=== PATIENT | female | born 1935 | race Caucasian/White ===

== ENCOUNTER → 2016-09-25 | Outpatient (CLI) | payer MEDICARE, BC ==
[~2016-09-25] VITALS: Ht 160 cm; Wt 56.7 kg
[~2016-09-25] MED LIST: /MOXI40TA; ACET65TA; ALLO100T; ALLO100T PO; ASCO25TA PO; ATOR1TAB21 PO; BISA10SU2; CAPT50TA4; CARV12.5 PO; CIPR250T3; CIPR500T19; COLA100C2; CORE12.5; CORE3.12 PO; CORE6.25; COREG; DARV100T; DIGO0.126; FERR325T; FLAG500T; FLEXERIL; FOLI1TAB; FOLI400T; FURO20TA2 PO; Ferrous Gluconate PO; K-TA10TA2 PO; LANO0.1211; LASI20TA; LASI20TA PO; LIDO5DIS; LISI-542 PO; MAGO400T PO; MILKSUS; NITR0.4S PO; NS 1,000 ML IV SCH; PERC5TAB8; PRIN10TA; PRIN20TA3; PROPOFOL 200 MG/20 ML VIAL As Ordered ONE; SLOWTAB; SPIRPOW; TAMO20TA4 PO; XANA0.25; XANA0.5T PO; ZOCO20TA; [UNRECOGNIZED DRUG - OTHER]
--- NOTE | 2016-09-25 10:29 | ROOR ---
Patient Name: Kaley Roque Procedure Date: 09/25/2016 10:06 AM Date of : 1935 Age: 80 Room: [facility] Gender: Female Note Status: Finalized Procedure: Colonoscopy Indications: Change in bowel habits Providers: Ravindra Fuller Jr, MD Referring MD: Adelia Pollard DO Requesting Provider: Medicines: Propofol per Anesthesia Complications: No immediate complications. Procedure: Pre-Anesthesia Assessment: - Prior to the procedure, a History and Physical was performed, and patient medications and allergies were reviewed. The patient is competent. The risks and benefits of the procedure and the sedation options and risks were discussed with the patient. All questions were answered and informed consent was obtained. Patient identification and proposed procedure were verified by the physician and the nurse in the pre-procedure area and in the procedure room. Mental Status Examination: alert and oriented. Airway Examination: normal oropharyngeal airway and neck mobility. Respiratory Examination: clear to auscultation. CV Examination: normal. ASA Grade Assessment: II - A patient with mild systemic disease. After reviewing the risks and benefits, the patient was deemed in satisfactory condition to undergo the procedure. The anesthesia plan was to use moderate sedation / analgesia (conscious sedation). Immediately prior to administration of medications, the patient was re-assessed for adequacy to receive sedatives. The heart rate, respiratory rate, oxygen saturations, blood pressure, adequacy of pulmonary ventilation, and response to care were monitored throughout the procedure. The physical status of the patient was re-assessed after the procedure. The Colonoscope was introduced through the anus and advanced to the cecum, identified by appendiceal orifice and ileocecal valve. The colonoscopy was performed without difficulty. The patient tolerated the procedure well. The quality of the bowel preparation was adequate and good. Findings: The perianal exam findings include non-thrombosed external hemorrhoids, non-thrombosed internal hemorrhoids and internal hemorrhoids that prolapse with straining, but require manual replacement into the anal canal (Grade III). Multiple small and large-mouthed diverticula were found in the sigmoid colon. The recto-sigmoid colon, descending colon, transverse colon, ascending colon, cecum, appendiceal orifice and ileocecal valve appeared normal. A diminutive polyp was found in the rectum. The polyp was removed with a jumbo cold forceps. Resection and retrieval were complete. Impression: - Non-thrombosed external hemorrhoids, non-thrombosed internal hemorrhoids and internal hemorrhoids that prolapse with straining, but require manual replacement into the anal canal (Grade III) found on perianal exam. - Diverticulosis in the sigmoid colon. - The recto-sigmoid colon, descending colon, transverse colon, ascending colon, cecum, appendiceal orifice and ileocecal valve are normal. - One diminutive polyp in the rectum, removed with a jumbo cold forceps. Resected and retrieved. Recommendation: - Discharge patient to home (ambulatory). - Repeat colonoscopy in 10 years for screening purposes. Ravindra Fuller MD Ravindra Fuller Jr, MD 09/25/2016 10:29:08 AM This report has been signed electronically. Number of Addenda: 0 Note Initiated On: 09/25/2016 10:06 AM Estimated Blood Loss: Estimated blood loss: none.
[2016-09-25 11:00] VITALS: BP 144/65
== END ==
LOC: M OPP 09:38
PROVIDERS: ATTEND Surgery
DX: R19.4 Change in bowel habit (principal); K62.1 Rectal polyp; K64.2 Third degree hemorrhoids; K64.4 Residual hemorrhoidal skin tags; K57.30 Diverticulosis of large intestine without perforation or abscess without bleeding; R04.0 Epistaxis; Q30.8 Other congenital malformations of nose; I78.0 Hereditary hemorrhagic telangiectasia; E78.00 Pure hypercholesterolemia, unspecified; I10 Essential (primary) hypertension; D64.9 Anemia, unspecified; E11.9 Type 2 diabetes mellitus without complications; I50.9 Heart failure, unspecified; I49.9 Cardiac arrhythmia, unspecified; G47.00 Insomnia, unspecified; H93.19 Tinnitus, unspecified ear; R06.02 Shortness of breath; Z95.0 Presence of cardiac pacemaker; Z79.899 Other long term (current) drug therapy; Z91.040 Latex allergy status

== ENCOUNTER 2016-12-13 12:52 | Emergency (ER) | payer MEDICARE, BC ==
[~2016-12-13] VITALS: Ht 160 cm; Wt 58.2 kg
[~2016-12-13 12:52] MED LIST changes: -NS 1,000 ML IV SCH; -PROPOFOL 200 MG/20 ML VIAL As Ordered ONE
[2016-12-13] MEDS ORDERED: NITR4TASL SL (13:18)
[2016-12-13] MEDS ORDERED: ASCO25TA PO (13:18)
--- NOTE | 2016-12-13 15:24 | REP ---
AP PELVIS WITH LEFT HIP: 12/13/2016 COMPARISON: CT abdomen pelvis 07/12/2009. CLINICAL HISTORY: Atraumatic pain. AP PELVIS: There are degenerative disc and facet changes lower lumbar spine. SI joints with minor degenerative change. Bones demineralized. SI joints symmetric. Iliac wings intact. There are minor degenerative changes of the hips at the acetabular margins. No significant joint space narrowing. The acetabuli, pubic rami, symphysis pubis without fracture, destructive lesion. Bilateral hips on the AP pelvis show no fracture or focal lesion. LEFT HIP: AP and frog-leg views show no joint space narrowing. There is no rim osteophyte in the femoral head. There are some soft tissue calcifications adjacent to the posterior superior aspect of the greater trochanter femoral head neck and trochanters show no fracture or destructive lesion. Proximal femoral shaft intact. IMPRESSION: 1. Some degenerative changes lower lumbar spine and facets, SI joints and minimally of the hips. No visible fracture or destructive lesion. Signed by Sergei Herron MD 12/13/2016 08:11 P
[2016-12-13] MEDS ORDERED: ACETAMINOPHEN TAB 650MG DOSE (2X325MG) PO ONE (15:30)
[2016-12-13] MEDS ORDERED: TYLE325T5 PO (16:10)
[2016-12-13 16:15] VITALS: BP 154/70
== END 2016-12-13 16:32 | disposition home or self-care (01) ==
LOC: EDBD 12:52 → M ED 14:56
DX: S76.012A Strain of muscle, fascia and tendon of left hip, initial encounter (principal); X58.XXXA Exposure to other specified factors, initial encounter; Y92.89 Other specified places as the place of occurrence of the external cause; Y93.89 Activity, other specified; Y99.8 Other external cause status; I50.9 Heart failure, unspecified; E11.9 Type 2 diabetes mellitus without complications; I25.2 Old myocardial infarction; I44.7 Left bundle-branch block, unspecified; M48.00 Spinal stenosis, site unspecified; I48.91 Unspecified atrial fibrillation; Z86.73 Personal history of transient ischemic attack (TIA), and cerebral infarction without residual deficits; Z95.5 Presence of coronary angioplasty implant and graft; Z79.899 Other long term (current) drug therapy

== ENCOUNTER 2017-08-07 13:53 | Emergency (ER) | payer MEDICARE, BC ==
[2017-08-07] MEDS: MECLIZINE 25 MG TABLET PO (15:38)
[2017-08-07] MEDS: CARVedilol 12.5 MG TAB PO (15:38)
[2017-08-07 15:44] LABS: BASO % 0.6 % (0.0-1.0); EOS # 0.2 10^3/uL (0.0-0.50); EOS % 3.5 % (0.0-3.0); HEMOGLOBIN 11.2 g/dl (12.0-16.0); IMMATURE GRANULOCYTE % 0.2 % (0-3.0); MEAN CORPUSCULAR HEMOGLOBIN 34.7 pg (27.0-33.0); MEAN CORPUSCULAR HGB CONC 32.9 g/dl (32.0-36.5); MEAN CORPUSCULAR VOLUME 105.3 fl (80.0-96.0); MONO # 0.5 10^3/uL (0.0-0.8); MONO % 10.5 % (0.0-5.0); NEUTROPHILS # 3.4 10^3/uL (1.8-7.7); NEUTROPHILS % 66.2 % (36.0-66.0); RED BLOOD COUNT 3.23 10^6/uL (4.00-5.40); RED CELL DISTRIBUTION WIDTH 13.4 % (11.5-14.5); WHITE BLOOD COUNT 5.2 10^3/uL (4.0-10.0)
[2017-08-07 15:52] LABS: INR 1.15; PROTHROMBIN TIME 14.9 SECONDS (12.4-14.5)
[2017-08-07 16:01] LABS: KETONE, URINE AUTO RFX NEGATIVE (NEGATIVE); LEUKOCYTE ESTERASE UR AUTO RFX NEGATIVE (NEGATIVE); NITRITE, URINE AUTO RFX NEGATIVE (NEGATIVE); RBC, URINE AUTO RFX 0 /HPF (0-3); SPECIFIC GRAVITY UR AUTO RFX 1.003 (1.002-1.035); SQUAM EPITHELIAL CELL UR AURFX 0 /HPF (0-6); WBC, URINE AUTO RFX 0 /HPF (0-3)
[2017-08-07 16:10] LABS: ANION GAP 9 MEQ/L (8-16); BLOOD UREA NITROGEN 15 MG/DL (7-18); CARBON DIOXIDE LEVEL 25 MEQ/L (21-32); CHLORIDE LEVEL 114 MEQ/L (98-107); CPK CREATINE PHOSPHOKINASE 122 U/L (26-192); CREATININE FOR GFR 1.14 MG/DL (0.55-1.30); GLOMERULAR FILTRATION RATE 48.5 (>32); GLUCOSE, FASTING 105 MG/DL (70-100); POTASSIUM SERUM 3.7 MEQ/L (3.5-5.1); SODIUM LEVEL 148 MEQ/L (136-145); TROPONIN I 0.03 NG/ML (< 0.10)
[2017-08-07 16:16] LABS: CK-MB VALUE MASS 4.9 NG/ML (0.0-3.6); MB/CK RELATIVE INDEX 4.01 (< OR =4)
[2017-08-07 16:35] LABS: PLATELET COUNT, AUTOMATED 84 10^3/uL (150-450)
[2017-08-07 16:36] LABS: IMMATURE PLATELET FRACTION % 2.9 % (0.0-9.6)
[2017-08-07 19:42] LABS: CK-MB VALUE MASS 5.1 NG/ML (0.0-3.6); CPK CREATINE PHOSPHOKINASE 136 U/L (26-192); MB/CK RELATIVE INDEX 3.75 (< OR =4); TROPONIN I 0.06 NG/ML (< 0.10)
== END 2017-08-07 21:00 | disposition home or self-care (01) ==
LOC: M ED 13:53
DX: R42 Dizziness and giddiness (principal); I10 Essential (primary) hypertension; E11.9 Type 2 diabetes mellitus without complications; E07.9 Disorder of thyroid, unspecified; Z79.890 Hormone replacement therapy; Z79.899 Other long term (current) drug therapy; Z91.040 Latex allergy status; Z86.73 Personal history of transient ischemic attack (TIA), and cerebral infarction without residual deficits; Z82.49 Family history of ischemic heart disease and other diseases of the circulatory system
CPT/HCPCS: 71045

== ENCOUNTER 2017-10-24 21:46 | Emergency (ER) | payer MEDICARE, BC ==
[2017-10-24 22:30] LABS: BASO % 0.7 % (0.0-1.0); EOS # 0.3 10^3/uL (0.0-0.50); EOS % 5.8 % (0.0-3.0); HEMOGLOBIN 9.6 g/dl (12.0-15.5); IMMATURE GRANULOCYTE % 0.2 % (0-3.0); LYMPH % 22.3 % (24.0-44.0); MEAN CORPUSCULAR HEMOGLOBIN 33.7 pg (27.0-33.0); MEAN CORPUSCULAR VOLUME 105.3 fl (80.0-96.0); MONO # 0.6 10^3/uL (0.0-0.8); MONO % 14.8 % (0.0-5.0); NEUTROPHILS # 2.4 10^3/uL (1.8-7.7); NEUTROPHILS % 56.2 % (36.0-66.0); PLATELET COUNT, AUTOMATED 100 10^3/uL (150-450); RED BLOOD COUNT 2.85 10^6/uL (4.00-5.40); RED CELL DISTRIBUTION WIDTH 14.4 % (11.5-14.5); WHITE BLOOD COUNT 4.3 10^3/uL (4.0-10.0)
[2017-10-24 22:49] LABS: INR 1.15; PROTHROMBIN TIME 14.9 SECONDS (12.4-14.5)
[2017-10-24 22:52] LABS: ANION GAP 8 MEQ/L (8-16); BLOOD UREA NITROGEN 21 MG/DL (7-18); CALCIUM LEVEL 8.5 MG/DL (8.8-10.2); CARBON DIOXIDE LEVEL 22 MEQ/L (21-32); CHLORIDE LEVEL 116 MEQ/L (98-107); CREATININE FOR GFR 1.38 MG/DL (0.55-1.30); GLOMERULAR FILTRATION RATE 38.9 (>32); GLUCOSE, FASTING 148 MG/DL (70-100); POTASSIUM SERUM 3.9 MEQ/L (3.5-5.1); SODIUM LEVEL 146 MEQ/L (136-145)
== END 2017-10-24 23:56 | disposition home or self-care (01) ==
LOC: M ED 21:46
DX: R04.0 Epistaxis (principal); I50.9 Heart failure, unspecified; I48.91 Unspecified atrial fibrillation; I25.10 Atherosclerotic heart disease of native coronary artery without angina pectoris; I78.0 Hereditary hemorrhagic telangiectasia; Z79.899 Other long term (current) drug therapy; Z79.890 Hormone replacement therapy; Z91.040 Latex allergy status
CPT/HCPCS: 80048

== ENCOUNTER 2017-12-28 15:39 | Inpatient (IN) | payer MEDICARE, BC ==
[2017-12-28] MEDS: NS 1,000 ML IV (17:03)
[2017-12-28] MEDS: ACETAMINOPHEN TAB 650MG DOSE (2X325MG) PO (17:03)
[2017-12-28 17:11] LABS: BASO % 0.3 % (0.0-1.0); HEMATOCRIT 32.2 % (36.0-47.0); HEMOGLOBIN 10.4 g/dl (12.0-15.5); IMMATURE GRANULOCYTE % 0.4 % (0-3.0); LYMPH # 0.3 10^3/uL (1.5-4.5); LYMPH % 3.7 % (24.0-44.0); MEAN CORPUSCULAR HEMOGLOBIN 32.9 pg (27.0-33.0); MEAN CORPUSCULAR HGB CONC 32.3 g/dl (32.0-36.5); MEAN CORPUSCULAR VOLUME 101.9 fl (80.0-96.0); MONO # 0.7 10^3/uL (0.0-0.8); MONO % 8.9 % (0.0-5.0); NEUTROPHILS # 6.7 10^3/uL (1.8-7.7); NEUTROPHILS % 86.7 % (36.0-66.0); RED BLOOD COUNT 3.16 10^6/uL (4.00-5.40); RED CELL DISTRIBUTION WIDTH 14.3 % (11.5-14.5); WHITE BLOOD COUNT 7.8 10^3/uL (4.0-10.0)
[2017-12-28 17:16] LABS: AMORPHOUS SEDIMENT RFX SMALL (NEGATIVE); KETONE, URINE AUTO RFX NEGATIVE (NEGATIVE); LEUKOCYTE ESTERASE UR AUTO RFX NEGATIVE (NEGATIVE); NITRITE, URINE AUTO RFX NEGATIVE (NEGATIVE); RBC, URINE AUTO RFX 5 /HPF (0-3); SPECIFIC GRAVITY UR AUTO RFX 1.014 (1.002-1.035); SQUAM EPITHELIAL CELL UR AURFX 2 /HPF (0-6); WBC, URINE AUTO RFX 1 /HPF (0-3)
[2017-12-28 17:17] LABS: PLATELET COUNT, AUTOMATED 98 10^3/uL (150-450); POSITIVE DIFF POS FLAG
[2017-12-28 17:18] LABS: PLATELET F 93
[2017-12-28 17:33] LABS: INFLUENZA A AMPLIFICATION NEGATIVE (NEGATIVE); INFLUENZA B AMPLIFICATION NEGATIVE (NEGATIVE)
[2017-12-28 17:38] LABS: ALBUMIN 3.3 GM/DL (3.2-5.2); ALBUMIN/GLOBULIN RATIO 0.97 (1.00-1.93); ALKALINE PHOSPHATASE 115 U/L (45-117); ALT/SGPT 27 U/L (12-78); ANION GAP 11 MEQ/L (8-16); AST/SGOT 48 U/L (7-37); BILIRUBIN,DIRECT 0.2 MG/DL (0.0-0.2); BILIRUBIN,TOTAL 0.8 MG/DL (0.2-1.0); BLOOD UREA NITROGEN 14 MG/DL (7-18); CALCIUM LEVEL 8.6 MG/DL (8.8-10.2); CARBON DIOXIDE LEVEL 21 MEQ/L (21-32); CHLORIDE LEVEL 110 MEQ/L (98-107); CK-MB VALUE MASS 2.4 NG/ML (<3.6); CPK CREATINE PHOSPHOKINASE 193 U/L (26-192); CREATININE FOR GFR 1.35 MG/DL (0.55-1.30); GLOMERULAR FILTRATION RATE 39.8 (>32); GLUCOSE, FASTING 144 MG/DL (70-100); MB/CK RELATIVE INDEX 1.24 (< OR =4); POTASSIUM SERUM 3.5 MEQ/L (3.5-5.1); SODIUM LEVEL 142 MEQ/L (136-145); TOTAL PROTEIN 6.7 GM/DL (6.4-8.2); TROPONIN I 0.07 NG/ML (< 0.10)
[2017-12-28 17:39] LABS: LACTIC ACID SEPSIS PROTOCOL 2.9 MMOL/L (0.4-2.0)
[2017-12-28] MEDS: DILUENT IV (17:45)
[2017-12-28] MEDS: NS IV (17:45)
[2017-12-28] MEDS: TOPIRAMATE (TopAMAX) 25 MG TAB PO (21:00)
[2017-12-28] MEDS: CARVedilol 3.125 MG TAB PO (21:00)
[2017-12-29] MEDS ORDERED: ONDANSETRON 4 MG TAB (S0181) PO (01:00)
[2017-12-29] MEDS ORDERED: BISACODYL 5 MG TAB PO (01:00)
[2017-12-29] MEDS: ATORVASTATIN 20 MG TAB PO ×2 (01:09→20:31)
[2017-12-29] MEDS: GABAPENTIN 100 MG CAP PO ×3 (01:09→20:31)
[2017-12-29] MEDS: HEPARIN SOD (PORCINE) 5000 UNITS/ML VIAL SQ ×4 (01:09→20:32)
[2017-12-29] MEDS: ACETAMINOPHEN TAB 650MG DOSE (2X325MG) PO ×3 (01:20→20:31)
[2017-12-29] MEDS ORDERED: VANCOMYCIN HCL 1,000 MG, VIAL MATE ADAPTER 1 EACH in D5W 250 ML IV (04:15)
[2017-12-29] MEDS: cefTRIAXone SOD 2 GM in D5W MINI-BAG PLUS 50 ML IV ×2 (04:45→16:22)
[2017-12-29] MEDS: LEVOTHYROXINE 25MCG TABLET (0.025MG) PO ×2 (05:23→08:05)
[2017-12-29] MEDS: VANCOMYCIN HCL 1,000 MG, VIAL MATE ADAPTER 1 EACH in D5W 250 ML IV (05:46)
[2017-12-29 07:20] LABS: BASO % 0.2 % (0.0-1.0); HEMATOCRIT 28.2 % (36.0-47.0); IMMATURE GRANULOCYTE % 0.5 % (0-3.0); LYMPH # 0.3 10^3/uL (1.5-4.5); LYMPH % 5.8 % (24.0-44.0); MEAN CORPUSCULAR HEMOGLOBIN 32.6 pg (27.0-33.0); MEAN CORPUSCULAR HGB CONC 31.9 g/dl (32.0-36.5); MEAN CORPUSCULAR VOLUME 102.2 fl (80.0-96.0); MONO # 0.3 10^3/uL (0.0-0.8); MONO % 4.7 % (0.0-5.0); NEUTROPHILS # 4.9 10^3/uL (1.8-7.7); NEUTROPHILS % 88.8 % (36.0-66.0); RED BLOOD COUNT 2.76 10^6/uL (4.00-5.40); RED CELL DISTRIBUTION WIDTH 14.8 % (11.5-14.5); WHITE BLOOD COUNT 5.6 10^3/uL (4.0-10.0)
[2017-12-29 07:27] LABS: PLATELET COUNT, AUTOMATED 73 10^3/uL (150-450)
[2017-12-29 07:34] LABS: ESTIMATED AVERAGE GLUCOSE 88 MG/DL (60-110); HEMOGLOBIN A1c 4.7 %
[2017-12-29 07:39] LABS: ALBUMIN 2.7 GM/DL (3.2-5.2); ALKALINE PHOSPHATASE 90 U/L (45-117); ALT/SGPT 24 U/L (12-78); ANION GAP 9 MEQ/L (8-16); AST/SGOT 55 U/L (7-37); BILIRUBIN,TOTAL 0.6 MG/DL (0.2-1.0); BLOOD UREA NITROGEN 19 MG/DL (7-18); CALCIUM LEVEL 7.4 MG/DL (8.8-10.2); CARBON DIOXIDE LEVEL 20 MEQ/L (21-32); CHLORIDE LEVEL 111 MEQ/L (98-107); CREATININE FOR GFR 1.58 MG/DL (0.55-1.30); GLOMERULAR FILTRATION RATE 33.2 (>32); GLUCOSE, FASTING 137 MG/DL (70-100); POTASSIUM SERUM 3.4 MEQ/L (3.5-5.1); SODIUM LEVEL 140 MEQ/L (136-145); TOTAL PROTEIN 5.7 GM/DL (6.4-8.2)
[2017-12-29 07:46] LABS: C REACTIVE PROTEIN QUANTITATIV 4.49 MG/DL (0.00-0.30)
[2017-12-29] MEDS: ESCITALOPRAM OXALATE 5MG TABLET (LEXAPRO) PO (08:04)
[2017-12-29] MEDS: MECLIZINE 25 MG TABLET PO (08:04)
[2017-12-29] MEDS: PANTOPRAZOLE 40MG TAB (PROTONIX) PO (08:05)
[2017-12-29] MEDS: MAGNESIUM OXIDE 400 MG TAB (MAG-OX) PO (08:26)
[2017-12-29] MEDS: CARVedilol 3.125 MG TAB PO ×2 (08:27→20:32)
[2017-12-29 08:42] LABS: ERYTHROCYTE SEDIMENTATION RATE 28 mm/hr (0-30)
[2017-12-29] MEDS ORDERED: ESCITALOPRAM OXALATE 10 MG TAB (LEXAPRO) PO (09:00)
[2017-12-29] MEDS: TOPIRAMATE (TopAMAX) 25 MG TAB PO (20:31)
[2017-12-29] MEDS: VANCOMYCIN HCL 750 MG, VIAL MATE ADAPTER 1 EACH in D5W 250 ML IV (23:00)
[2017-12-30] MEDS: cefTRIAXone SOD 2 GM in D5W MINI-BAG PLUS 50 ML IV ×2 (04:27→16:00)
[2017-12-30] MEDS: HEPARIN SOD (PORCINE) 5000 UNITS/ML VIAL SQ ×2 (05:24→14:00)
[2017-12-30] MEDS: LEVOTHYROXINE 25MCG TABLET (0.025MG) PO (05:24)
[2017-12-30 06:51] LABS: HEMATOCRIT 25.6 % (36.0-47.0); HEMOGLOBIN 8.3 g/dl (12.0-15.5); MEAN CORPUSCULAR HEMOGLOBIN 32.3 pg (27.0-33.0); MEAN CORPUSCULAR HGB CONC 32.4 g/dl (32.0-36.5); MEAN CORPUSCULAR VOLUME 99.6 fl (80.0-96.0); RED BLOOD COUNT 2.57 10^6/uL (4.00-5.40); RED CELL DISTRIBUTION WIDTH 14.9 % (11.5-14.5); WHITE BLOOD COUNT 4.8 10^3/uL (4.0-10.0)
[2017-12-30 07:06] LABS: ADD MANUAL DIFFER YES; DIFF SLIDE NUMBER 56; PLATELET COUNT, AUTOMATED 63 10^3/uL (150-450); POSITIVE MORPH POS FLAG
[2017-12-30 07:07] LABS: IMMATURE PLATELET FRACTION % 3.4 % (0.0-9.6)
[2017-12-30 07:11] LABS: ANION GAP 6 MEQ/L (8-16); BLOOD UREA NITROGEN 28 MG/DL (7-18); CALCIUM LEVEL 7.6 MG/DL (8.8-10.2); CARBON DIOXIDE LEVEL 23 MEQ/L (21-32); CHLORIDE LEVEL 113 MEQ/L (98-107); CREATININE FOR GFR 1.63 MG/DL (0.55-1.30); GLUCOSE, FASTING 117 MG/DL (70-100); POTASSIUM SERUM 3.5 MEQ/L (3.5-5.1); SODIUM LEVEL 142 MEQ/L (136-145)
[2017-12-30 07:31] LABS: ANISOCYTOSIS 1+; BANDS 8 % (< 11); EOSINOPHILS 1 % (0-5); LYMPHOCYTES 12 % (16-52); MONOCYTES 7 % (0-8); NEUTROPHILS 72 % (35-75); PLATELET ESTIMATE DECREASED (NORMAL); POIKILOCYTOSIS 1+
[2017-12-30] MEDS: PANTOPRAZOLE 40MG TAB (PROTONIX) PO (08:33)
[2017-12-30] MEDS: MAGNESIUM OXIDE 400 MG TAB (MAG-OX) PO (08:33)
[2017-12-30] MEDS: ESCITALOPRAM OXALATE 5MG TABLET (LEXAPRO) PO (08:33)
[2017-12-30] MEDS: MECLIZINE 25 MG TABLET PO (08:33)
[2017-12-30] MEDS: GABAPENTIN 100 MG CAP PO ×2 (08:33→21:26)
[2017-12-30] MEDS: CARVedilol 3.125 MG TAB PO ×2 (08:33→21:27)
[2017-12-30 09:06] LABS: C REACTIVE PROTEIN QUANTITATIV 9.99 MG/DL (0.00-0.30)
[2017-12-30 09:13] LABS: ERYTHROCYTE SEDIMENTATION RATE 34 mm/hr (0-30)
[2017-12-30] MEDS: ATORVASTATIN 20 MG TAB PO (21:26)
[2017-12-30] MEDS: TOPIRAMATE (TopAMAX) 25 MG TAB PO (21:26)
[2017-12-30] MEDS: VANCOMYCIN HCL 750 MG, VIAL MATE ADAPTER 1 EACH in D5W 250 ML IV (22:41)
[2017-12-30 22:57] LABS: VANCOMYCIN LEVEL TROUGH 12.7 UG/ML (10.0-20.0)
[2017-12-31] MEDS: cefTRIAXone SOD 2 GM in D5W MINI-BAG PLUS 50 ML IV (04:48)
[2017-12-31] MEDS: LEVOTHYROXINE 25MCG TABLET (0.025MG) PO (05:34)
[2017-12-31 07:31] LABS: HEMATOCRIT 25.4 % (36.0-47.0); HEMOGLOBIN 8.2 g/dl (12.0-15.5); MEAN CORPUSCULAR HEMOGLOBIN 31.9 pg (27.0-33.0); MEAN CORPUSCULAR HGB CONC 32.3 g/dl (32.0-36.5); MEAN CORPUSCULAR VOLUME 98.8 fl (80.0-96.0); RED BLOOD COUNT 2.57 10^6/uL (4.00-5.40); RED CELL DISTRIBUTION WIDTH 14.9 % (11.5-14.5); WHITE BLOOD COUNT 4.2 10^3/uL (4.0-10.0)
[2017-12-31 07:37] LABS: PLATELET COUNT, AUTOMATED 63 10^3/uL (150-450); POSITIVE MORPH POS FLAG
[2017-12-31 07:38] LABS: ADD MANUAL DIFFER YES; ANION GAP 10 MEQ/L (8-16); BLOOD UREA NITROGEN 21 MG/DL (7-18); CALCIUM LEVEL 7.1 MG/DL (8.8-10.2); CARBON DIOXIDE LEVEL 21 MEQ/L (21-32); CHLORIDE LEVEL 111 MEQ/L (98-107); CREATININE FOR GFR 1.26 MG/DL (0.55-1.30); DIFF SLIDE NUMBER 51; GLOMERULAR FILTRATION RATE 43.1 (>32); GLUCOSE, FASTING 95 MG/DL (70-100); POTASSIUM SERUM 2.7 MEQ/L (3.5-5.1); SODIUM LEVEL 142 MEQ/L (136-145)
[2017-12-31 07:39] LABS: IMMATURE PLATELET FRACTION % 3.9 % (0.0-9.6)
[2017-12-31 08:59] LABS: ANISOCYTOSIS 1+; ATYPICAL LYMPH 4 % (0-5); BANDS 2 % (< 11); LYMPHOCYTES 20 % (16-52); NEUTROPHILS 74 % (35-75); PLATELET ESTIMATE DECREASED (NORMAL); POIKILOCYTOSIS 1+
[2017-12-31] MEDS: ESCITALOPRAM OXALATE 5MG TABLET (LEXAPRO) PO (09:58)
[2017-12-31] MEDS: MECLIZINE 25 MG TABLET PO (09:59)
[2017-12-31] MEDS: MAGNESIUM OXIDE 400 MG TAB (MAG-OX) PO (09:59)
[2017-12-31] MEDS: GABAPENTIN 100 MG CAP PO ×2 (09:59→20:55)
[2017-12-31] MEDS: CARVedilol 3.125 MG TAB PO ×2 (09:59→20:55)
[2017-12-31] MEDS: POTASSIUM CHLORIDE 10 MEQ SR TABLET PO ×2 (09:59→11:44)
[2017-12-31] MEDS: PANTOPRAZOLE 40MG TAB (PROTONIX) PO (10:00)
[2017-12-31 18:44] LABS: POTASSIUM SERUM 3.6 MEQ/L (3.5-5.1)
[2017-12-31] MEDS: TOPIRAMATE (TopAMAX) 25 MG TAB PO (20:54)
[2017-12-31] MEDS: ATORVASTATIN 20 MG TAB PO (20:55)
[2017-12-31] MEDS: NAFCILLIN SOD 2 GM in D5W MINI-BAG PLUS 50 ML IV (22:55)
[2018-01-01] MEDS: LEVOTHYROXINE 25MCG TABLET (0.025MG) PO (05:39)
[2018-01-01] MEDS: NAFCILLIN SOD 2 GM in D5W MINI-BAG PLUS 50 ML IV ×4 (05:39→22:30)
[2018-01-01 06:27] LABS: BASO % 0.3 % (0.0-1.0); EOS # 0.1 10^3/uL (0.0-0.50); EOS % 2.4 % (0.0-3.0); HEMOGLOBIN 8.1 g/dl (12.0-15.5); IMMATURE GRANULOCYTE % 0.3 % (0-3.0); LYMPH # 0.5 10^3/uL (1.5-4.5); LYMPH % 17.5 % (24.0-44.0); MEAN CORPUSCULAR HEMOGLOBIN 32.7 pg (27.0-33.0); MEAN CORPUSCULAR HGB CONC 32.4 g/dl (32.0-36.5); MEAN CORPUSCULAR VOLUME 100.8 fl (80.0-96.0); MONO # 0.4 10^3/uL (0.0-0.8); NEUTROPHILS # 1.9 10^3/uL (1.8-7.7); NEUTROPHILS % 65.5 % (36.0-66.0); RED BLOOD COUNT 2.48 10^6/uL (4.00-5.40); RED CELL DISTRIBUTION WIDTH 15.1 % (11.5-14.5); WHITE BLOOD COUNT 2.9 10^3/uL (4.0-10.0)
[2018-01-01 06:34] LABS: PLATELET COUNT, AUTOMATED 62 10^3/uL (150-450)
[2018-01-01 06:47] LABS: ANION GAP 9 MEQ/L (8-16); BLOOD UREA NITROGEN 19 MG/DL (7-18); CALCIUM LEVEL 7.2 MG/DL (8.8-10.2); CARBON DIOXIDE LEVEL 21 MEQ/L (21-32); CHLORIDE LEVEL 116 MEQ/L (98-107); CREATININE FOR GFR 1.15 MG/DL (0.55-1.30); GLOMERULAR FILTRATION RATE 47.9 (>32); GLUCOSE, FASTING 99 MG/DL (70-100); POTASSIUM SERUM 3.5 MEQ/L (3.5-5.1); SODIUM LEVEL 146 MEQ/L (136-145)
[2018-01-01] MEDS: GABAPENTIN 100 MG CAP PO ×2 (08:34→22:29)
[2018-01-01] MEDS: PANTOPRAZOLE 40MG TAB (PROTONIX) PO (08:34)
[2018-01-01] MEDS: MECLIZINE 25 MG TABLET PO (08:34)
[2018-01-01] MEDS: CARVedilol 3.125 MG TAB PO ×2 (08:34→22:29)
[2018-01-01] MEDS: MAGNESIUM OXIDE 400 MG TAB (MAG-OX) PO (08:34)
[2018-01-01] MEDS: ESCITALOPRAM OXALATE 5MG TABLET (LEXAPRO) PO (08:35)
[2018-01-01 13:40] LABS: IRON (FE) 25 UG/DL (50-170); PERCENT SATURATION 10.9 % (13.2-45.0); TOTAL IRON BINDING CAPACITY 229 UG/DL (250-450)
[2018-01-01 13:45] LABS: VITAMIN B12 LEVEL 440 PG/ML
[2018-01-01] MEDS: SODIUM CHLORIDE 0.9% INJ 10 ML SYR IV (17:02)
[2018-01-01] MEDS: TOPIRAMATE (TopAMAX) 25 MG TAB PO (22:28)
[2018-01-01] MEDS: ATORVASTATIN 20 MG TAB PO (22:29)
[2018-01-02] MEDS: NAFCILLIN SOD 2 GM in D5W MINI-BAG PLUS 50 ML IV ×4 (05:15→22:41)
[2018-01-02] MEDS: SODIUM CHLORIDE 0.9% INJ 10 ML SYR IV ×3 (06:24→17:04)
[2018-01-02] MEDS: LEVOTHYROXINE 25MCG TABLET (0.025MG) PO (06:24)
[2018-01-02 06:32] LABS: BASO % 0.3 % (0.0-1.0); EOS # 0.1 10^3/uL (0.0-0.50); EOS % 3.1 % (0.0-3.0); HEMATOCRIT 23.9 % (36.0-47.0); HEMOGLOBIN 7.8 g/dl (12.0-15.5); IMMATURE GRANULOCYTE % 0.3 % (0-3.0); LYMPH # 0.6 10^3/uL (1.5-4.5); LYMPH % 19.3 % (24.0-44.0); MEAN CORPUSCULAR HEMOGLOBIN 31.7 pg (27.0-33.0); MEAN CORPUSCULAR HGB CONC 32.6 g/dl (32.0-36.5); MEAN CORPUSCULAR VOLUME 97.2 fl (80.0-96.0); MONO # 0.5 10^3/uL (0.0-0.8); RED BLOOD COUNT 2.46 10^6/uL (4.00-5.40); WHITE BLOOD COUNT 3.2 10^3/uL (4.0-10.0)
[2018-01-02 06:33] LABS: PLATELET COUNT, AUTOMATED 72 10^3/uL (150-450)
[2018-01-02 06:34] LABS: IMMATURE PLATELET FRACTION % 2.6 % (0.0-9.6)
[2018-01-02 06:50] LABS: ANION GAP 10 MEQ/L (8-16); BLOOD UREA NITROGEN 18 MG/DL (7-18); C REACTIVE PROTEIN QUANTITATIV 5.14 MG/DL (0.00-0.30); CALCIUM LEVEL 7.4 MG/DL (8.8-10.2); CARBON DIOXIDE LEVEL 21 MEQ/L (21-32); CHLORIDE LEVEL 116 MEQ/L (98-107); CREATININE FOR GFR 1.21 MG/DL (0.55-1.30); GLOMERULAR FILTRATION RATE 45.1 (>32); GLUCOSE, FASTING 97 MG/DL (70-100); POTASSIUM SERUM 3.2 MEQ/L (3.5-5.1); SODIUM LEVEL 147 MEQ/L (136-145)
[2018-01-02 07:02] LABS: ERYTHROCYTE SEDIMENTATION RATE 42 mm/hr (0-30)
[2018-01-02] MEDS: GABAPENTIN 100 MG CAP PO ×2 (08:33→20:09)
[2018-01-02] MEDS: MECLIZINE 25 MG TABLET PO (08:33)
[2018-01-02] MEDS: PANTOPRAZOLE 40MG TAB (PROTONIX) PO (08:33)
[2018-01-02] MEDS: ESCITALOPRAM OXALATE 5MG TABLET (LEXAPRO) PO (08:33)
[2018-01-02] MEDS: MAGNESIUM OXIDE 400 MG TAB (MAG-OX) PO (08:33)
[2018-01-02] MEDS: CARVedilol 3.125 MG TAB PO ×2 (08:34→20:09)
[2018-01-02] MEDS ORDERED: PROPOFOL 200 MG/20 ML VIAL As Ordered (12:47)
[2018-01-02 12:53] LABS: MAGNESIUM LEVEL 1.9 MG/DL (1.8-2.4)
[2018-01-02] MEDS: CETACAINE SPRAY 5GM As Ordered (12:55)
[2018-01-02] MEDS ORDERED: ONDANSETRON 4MG/2ML VIAL (J2405) IV (13:45)
[2018-01-02] MEDS: LR 1,000 ML IV (13:45)
[2018-01-02] MEDS: POTASSIUM CHLORIDE 10 MEQ SR TABLET PO (17:03)
[2018-01-02] MEDS: ACETAMINOPHEN TAB 650MG DOSE (2X325MG) PO (20:08)
[2018-01-02] MEDS: ATORVASTATIN 20 MG TAB PO (20:08)
[2018-01-02] MEDS: TOPIRAMATE (TopAMAX) 25 MG TAB PO (20:09)
[2018-01-02 21:05] LABS: HEMATOCRIT 25.9 % (36.0-47.0); HEMOGLOBIN 8.3 g/dl (12.0-15.5)
[2018-01-03] MEDS: SODIUM CHLORIDE 0.9% INJ 10 ML SYR IV ×3 (00:05→17:39)
[2018-01-03 03:20] LABS: HEMATOCRIT 24.9 % (36.0-47.0); HEMOGLOBIN 7.9 g/dl (12.0-15.5)
[2018-01-03] MEDS: LEVOTHYROXINE 25MCG TABLET (0.025MG) PO (05:34)
[2018-01-03] MEDS: NAFCILLIN SOD 2 GM in D5W MINI-BAG PLUS 50 ML IV ×4 (05:34→22:35)
[2018-01-03 05:43] LABS: BASO % 0.2 % (0.0-1.0); EOS # 0.2 10^3/uL (0.0-0.50); HEMATOCRIT 25.8 % (36.0-47.0); HEMOGLOBIN 8.3 g/dl (12.0-15.5); IMMATURE GRANULOCYTE % 0.5 % (0-3.0); LYMPH # 0.7 10^3/uL (1.5-4.5); LYMPH % 16.7 % (24.0-44.0); MEAN CORPUSCULAR HEMOGLOBIN 32.7 pg (27.0-33.0); MEAN CORPUSCULAR HGB CONC 32.2 g/dl (32.0-36.5); MEAN CORPUSCULAR VOLUME 101.6 fl (80.0-96.0); MONO # 0.5 10^3/uL (0.0-0.8); MONO % 11.7 % (0.0-5.0); NEUTROPHILS # 2.7 10^3/uL (1.8-7.7); NEUTROPHILS % 66.9 % (36.0-66.0); RED BLOOD COUNT 2.54 10^6/uL (4.00-5.40); RED CELL DISTRIBUTION WIDTH 15.5 % (11.5-14.5)
[2018-01-03 05:53] LABS: PLATELET COUNT, AUTOMATED 99 10^3/uL (150-450)
[2018-01-03 06:04] LABS: ANION GAP 9 MEQ/L (8-16); BLOOD UREA NITROGEN 17 MG/DL (7-18); CALCIUM LEVEL 7.1 MG/DL (8.8-10.2); CARBON DIOXIDE LEVEL 22 MEQ/L (21-32); CHLORIDE LEVEL 118 MEQ/L (98-107); CREATININE FOR GFR 1.17 MG/DL (0.55-1.30); GLOMERULAR FILTRATION RATE 46.9 (>32); GLUCOSE, FASTING 87 MG/DL (70-100); POTASSIUM SERUM 3.3 MEQ/L (3.5-5.1); SODIUM LEVEL 149 MEQ/L (136-145)
[2018-01-03] MEDS ORDERED: KCL 40MEQ in NS 1000ML 1,000 ML IV (06:45)
[2018-01-03 07:13] LABS: FERRITIN 97 NG/ML (8-252); IRON (FE) 30 UG/DL (50-170); NT-PRO BNP 6427 PG/ML (<450); PERCENT SATURATION 15.3 % (13.2-45.0); TOTAL IRON BINDING CAPACITY 196 UG/DL (250-450)
[2018-01-03] MEDS: MECLIZINE 25 MG TABLET PO (08:26)
[2018-01-03] MEDS: GABAPENTIN 100 MG CAP PO ×2 (08:26→21:11)
[2018-01-03] MEDS: MAGNESIUM OXIDE 400 MG TAB (MAG-OX) PO (08:26)
[2018-01-03] MEDS: POTASSIUM CHLORIDE 10 MEQ SR TABLET PO (08:26)
[2018-01-03] MEDS: CARVedilol 3.125 MG TAB PO ×2 (08:28→21:10)
[2018-01-03] MEDS: PANTOPRAZOLE 40MG INJ (PROTONIX) (C9113) IV ×2 (08:28→22:22)
[2018-01-03 10:50] LABS: REASON FOR REVIEW PLATELET MORPHOLOGY; SLIDE REVIEW Report; SOURCE PERIPHERAL SMEAR
[2018-01-03 10:54] LABS: HEMATOCRIT 26.9 % (36.0-47.0); HEMOGLOBIN 8.5 g/dl (12.0-15.5)
[2018-01-03] MEDS: COCAINE 4% TOP SOLN 4 ML VIAL As Ordered (12:00)
[2018-01-03] MEDS: METHYLENE BLUE 0.5% (5MG/ML) 10 ML AMP (PROVAYBLUE)(Q9968 PER 1MG) As Ordered (12:00)
[2018-01-03] MEDS: LIDOCAINE W/EPINEPHRINE 1% 20ML VIAL As Ordered (12:00)
[2018-01-03] MEDS: OXYMETAZOLINE NASAL SPRAY (AFRIN) As Ordered (12:00)
[2018-01-03] MEDS: ESCITALOPRAM OXALATE 5MG TABLET (LEXAPRO) PO (12:45)
[2018-01-03] MEDS: ACETAMINOPHEN TAB 650MG DOSE (2X325MG) PO (12:47)
[2018-01-03 14:20] LABS: HEMATOCRIT 26.2 % (36.0-47.0); HEMOGLOBIN 8.4 g/dl (12.0-15.5)
[2018-01-03 14:22] LABS: PLATELET COUNT, AUTOMATED 102 10^3/uL (150-450)
[2018-01-03 14:30] LABS: PROTHROMBIN TIME 15.4 SECONDS (12.1-14.4)
[2018-01-03 14:31] LABS: FIBRINOGEN 365 MG/DL (221-452); PARTIAL THROMBOPLASTIN TIME 35.8 SECONDS (25.4-37.6)
[2018-01-03 14:34] LABS: D-DIMER QUANT 3236.8 ng/ml (<500)
[2018-01-03 14:45] LABS: ANION GAP 9 MEQ/L (8-16); BLOOD UREA NITROGEN 16 MG/DL (7-18); CALCIUM LEVEL 7.1 MG/DL (8.8-10.2); CARBON DIOXIDE LEVEL 21 MEQ/L (21-32); CHLORIDE LEVEL 116 MEQ/L (98-107); CREATININE FOR GFR 1.16 MG/DL (0.55-1.30); GLOMERULAR FILTRATION RATE 47.4 (>32); GLUCOSE, FASTING 141 MG/DL (70-100); POTASSIUM SERUM 3.3 MEQ/L (3.5-5.1); SODIUM LEVEL 146 MEQ/L (136-145)
[2018-01-03 18:39] LABS: IMMEDIATE SPIN CROSSMATCH 1 2
[2018-01-03] MEDS: ATORVASTATIN 20 MG TAB PO (21:11)
[2018-01-03] MEDS: TOPIRAMATE (TopAMAX) 25 MG TAB PO (21:11)
[2018-01-03 22:23] LABS: HEMATOCRIT 31.7 % (36.0-47.0)
[2018-01-03 22:43] LABS: HEMOGLOBIN 10.5 g/dl (12.0-15.5)
[2018-01-04 03:36] LABS: HEMATOCRIT 31.3 % (36.0-47.0); HEMOGLOBIN 10.4 g/dl (12.0-15.5)
[2018-01-04] MEDS: NAFCILLIN SOD 2 GM in D5W MINI-BAG PLUS 50 ML IV ×4 (05:35→21:11)
[2018-01-04] MEDS: LEVOTHYROXINE 25MCG TABLET (0.025MG) PO (05:35)
[2018-01-04] MEDS: SODIUM CHLORIDE 0.9% INJ 10 ML SYR IV ×3 (05:36→17:24)
[2018-01-04 05:53] LABS: BASO % 0.4 % (0.0-1.0); EOS # 0.2 10^3/uL (0.0-0.50); EOS % 4.4 % (0.0-3.0); HEMATOCRIT 31.4 % (36.0-47.0); HEMOGLOBIN 10.3 g/dl (12.0-15.5); IMMATURE GRANULOCYTE % 0.7 % (0-3.0); LYMPH # 0.7 10^3/uL (1.5-4.5); LYMPH % 14.4 % (24.0-44.0); MEAN CORPUSCULAR HEMOGLOBIN 31.4 pg (27.0-33.0); MEAN CORPUSCULAR HGB CONC 32.8 g/dl (32.0-36.5); MEAN CORPUSCULAR VOLUME 95.7 fl (80.0-96.0); MONO # 0.5 10^3/uL (0.0-0.8); MONO % 11.6 % (0.0-5.0); NEUTROPHILS # 3.1 10^3/uL (1.8-7.7); NEUTROPHILS % 68.5 % (36.0-66.0); PLATELET COUNT, AUTOMATED 113 10^3/uL (150-450); RED BLOOD COUNT 3.28 10^6/uL (4.00-5.40); RED CELL DISTRIBUTION WIDTH 16.2 % (11.5-14.5); WHITE BLOOD COUNT 4.6 10^3/uL (4.0-10.0)
[2018-01-04 06:24] LABS: ANION GAP 10 MEQ/L (8-16); BLOOD UREA NITROGEN 13 MG/DL (7-18); CALCIUM LEVEL 7.3 MG/DL (8.8-10.2); CARBON DIOXIDE LEVEL 22 MEQ/L (21-32); CHLORIDE LEVEL 116 MEQ/L (98-107); CREATININE FOR GFR 1.04 MG/DL (0.55-1.30); GLOMERULAR FILTRATION RATE 53.7 (>32); GLUCOSE, FASTING 85 MG/DL (70-100); POTASSIUM SERUM 3.2 MEQ/L (3.5-5.1); SODIUM LEVEL 148 MEQ/L (136-145)
[2018-01-04] MEDS: PANTOPRAZOLE 40MG INJ (PROTONIX) (C9113) IV ×2 (08:57→21:10)
[2018-01-04] MEDS: GABAPENTIN 100 MG CAP PO ×2 (08:58→21:11)
[2018-01-04] MEDS: ESCITALOPRAM OXALATE 5MG TABLET (LEXAPRO) PO (08:58)
[2018-01-04] MEDS: MECLIZINE 25 MG TABLET PO (08:58)
[2018-01-04] MEDS: MAGNESIUM OXIDE 400 MG TAB (MAG-OX) PO (08:59)
[2018-01-04] MEDS: CARVedilol 3.125 MG TAB PO ×2 (08:59→21:12)
[2018-01-04 10:46] LABS: HEMATOCRIT 33.5 % (36.0-47.0); HEMOGLOBIN 11.1 g/dl (12.0-15.5)
[2018-01-04] MEDS: POTASSIUM CHLORIDE 10 MEQ SR TABLET PO (15:22)
[2018-01-04] MEDS: NS 0.45% 1,000 ML IV (15:24)
[2018-01-04 16:05] LABS: HEMATOCRIT 32.2 % (36.0-47.0); HEMOGLOBIN 10.7 g/dl (12.0-15.5)
[2018-01-04] MEDS: TOPIRAMATE (TopAMAX) 25 MG TAB PO (21:11)
[2018-01-04] MEDS: ATORVASTATIN 20 MG TAB PO (21:11)
[2018-01-04 22:54] LABS: HEMATOCRIT 29.4 % (36.0-47.0); HEMOGLOBIN 9.7 g/dl (12.0-15.5)
[2018-01-04 23:11] LABS: ANION GAP 9 MEQ/L (8-16); BLOOD UREA NITROGEN 11 MG/DL (7-18); CALCIUM LEVEL 7.6 MG/DL (8.8-10.2); CARBON DIOXIDE LEVEL 21 MEQ/L (21-32); CHLORIDE LEVEL 116 MEQ/L (98-107); CREATININE FOR GFR 1.03 MG/DL (0.55-1.30); GLOMERULAR FILTRATION RATE 54.3 (>32); GLUCOSE, FASTING 89 MG/DL (70-100); POTASSIUM SERUM 3.3 MEQ/L (3.5-5.1); SODIUM LEVEL 146 MEQ/L (136-145)
[2018-01-05] MEDS: NAFCILLIN SOD 2 GM in D5W MINI-BAG PLUS 50 ML IV ×6 (00:58→22:05)
[2018-01-05 03:28] LABS: HEMATOCRIT 29.6 % (36.0-47.0); HEMOGLOBIN 9.7 g/dl (12.0-15.5)
[2018-01-05] MEDS: SODIUM CHLORIDE 0.9% INJ 10 ML SYR IV ×2 (05:47→18:00)
[2018-01-05] MEDS: LEVOTHYROXINE 25MCG TABLET (0.025MG) PO (05:47)
[2018-01-05 06:10] LABS: BASO % 0.5 % (0.0-1.0); EOS # 0.2 10^3/uL (0.0-0.50); EOS % 4.4 % (0.0-3.0); HEMATOCRIT 30.5 % (36.0-47.0); HEMOGLOBIN 10.1 g/dl (12.0-15.5); IMMATURE GRANULOCYTE % 0.5 % (0-3.0); LYMPH # 0.8 10^3/uL (1.5-4.5); LYMPH % 18.1 % (24.0-44.0); MEAN CORPUSCULAR HEMOGLOBIN 32.3 pg (27.0-33.0); MEAN CORPUSCULAR HGB CONC 33.1 g/dl (32.0-36.5); MEAN CORPUSCULAR VOLUME 97.4 fl (80.0-96.0); MONO # 0.4 10^3/uL (0.0-0.8); NEUTROPHILS # 2.9 10^3/uL (1.8-7.7); NEUTROPHILS % 66.5 % (36.0-66.0); PLATELET COUNT, AUTOMATED 124 10^3/uL (150-450); RED BLOOD COUNT 3.13 10^6/uL (4.00-5.40); RED CELL DISTRIBUTION WIDTH 16.7 % (11.5-14.5); WHITE BLOOD COUNT 4.3 10^3/uL (4.0-10.0)
[2018-01-05 06:28] LABS: ANION GAP 8 MEQ/L (8-16); BLOOD UREA NITROGEN 11 MG/DL (7-18); CALCIUM LEVEL 7.3 MG/DL (8.8-10.2); CARBON DIOXIDE LEVEL 22 MEQ/L (21-32); CHLORIDE LEVEL 117 MEQ/L (98-107); CREATININE FOR GFR 0.98 MG/DL (0.55-1.30); GLOMERULAR FILTRATION RATE 57.6 (>32); GLUCOSE, FASTING 86 MG/DL (70-100); POTASSIUM SERUM 3.5 MEQ/L (3.5-5.1); SODIUM LEVEL 147 MEQ/L (136-145)
[2018-01-05] MEDS: PANTOPRAZOLE 40MG INJ (PROTONIX) (C9113) IV ×2 (09:12→22:04)
[2018-01-05] MEDS: GABAPENTIN 100 MG CAP PO ×2 (09:13→22:04)
[2018-01-05] MEDS: POTASSIUM CHLORIDE 10 MEQ SR TABLET PO (09:13)
[2018-01-05] MEDS: MECLIZINE 25 MG TABLET PO (09:13)
[2018-01-05] MEDS: MAGNESIUM OXIDE 400 MG TAB (MAG-OX) PO (09:14)
[2018-01-05] MEDS: CARVedilol 3.125 MG TAB PO ×2 (09:14→22:04)
[2018-01-05] MEDS: NS 0.45% 1,000 ML IV (11:52)
[2018-01-05 13:13] LABS: HEMATOCRIT 34.2 % (36.0-47.0); HEMOGLOBIN 11.2 g/dl (12.0-15.5)
[2018-01-05] MEDS: ESCITALOPRAM OXALATE 5MG TABLET (LEXAPRO) PO (15:47)
[2018-01-05] MEDS: POLYSPORIN TOPICAL OINTMENT 15GM TOP ×2 (17:48→22:05)
[2018-01-05] MEDS: FUROSEMIDE 20 MG/2 ML VIAL (J1940) IV ×2 (20:43→21:15)
[2018-01-05] MEDS: IPRATROPIUM 0.5MG/ALBUTEROL 2.5MG INH SOL UD 3ML (DUONEB)(J7620) NEB (20:52)
[2018-01-05] MEDS ORDERED: FUROSEMIDE 20 MG/2 ML VIAL (J1940) IV (21:30)
[2018-01-05] MEDS: FUROSEMIDE 40 MG/4 ML VIAL (J1940) IV (22:03)
[2018-01-05] MEDS: ATORVASTATIN 20 MG TAB PO (22:04)
[2018-01-05] MEDS: TOPIRAMATE (TopAMAX) 25 MG TAB PO (22:04)
[2018-01-06] MEDS: NAFCILLIN SOD 2 GM in D5W MINI-BAG PLUS 50 ML IV ×6 (01:29→22:01)
[2018-01-06] MEDS: LEVOTHYROXINE 25MCG TABLET (0.025MG) PO (05:24)
[2018-01-06] MEDS: SODIUM CHLORIDE 0.9% INJ 10 ML SYR IV ×5 (05:24→23:37)
[2018-01-06 05:39] LABS: BASO % 0.7 % (0.0-1.0); EOS # 0.1 10^3/uL (0.0-0.50); HEMATOCRIT 32.8 % (36.0-47.0); HEMOGLOBIN 10.8 g/dl (12.0-15.5); IMMATURE GRANULOCYTE % 0.6 % (0-3.0); LYMPH # 0.8 10^3/uL (1.5-4.5); LYMPH % 13.9 % (24.0-44.0); MEAN CORPUSCULAR HEMOGLOBIN 32.2 pg (27.0-33.0); MEAN CORPUSCULAR HGB CONC 32.9 g/dl (32.0-36.5); MEAN CORPUSCULAR VOLUME 97.9 fl (80.0-96.0); MONO # 0.6 10^3/uL (0.0-0.8); MONO % 10.2 % (0.0-5.0); NEUTROPHILS # 3.9 10^3/uL (1.8-7.7); NEUTROPHILS % 72.6 % (36.0-66.0); PLATELET COUNT, AUTOMATED 140 10^3/uL (150-450); RED BLOOD COUNT 3.35 10^6/uL (4.00-5.40); RED CELL DISTRIBUTION WIDTH 16.4 % (11.5-14.5); WHITE BLOOD COUNT 5.4 10^3/uL (4.0-10.0)
[2018-01-06 05:59] LABS: ANION GAP 9 MEQ/L (8-16); BLOOD UREA NITROGEN 11 MG/DL (7-18); CALCIUM LEVEL 7.6 MG/DL (8.8-10.2); CARBON DIOXIDE LEVEL 22 MEQ/L (21-32); CHLORIDE LEVEL 116 MEQ/L (98-107); CREATININE FOR GFR 1.15 MG/DL (0.55-1.30); GLOMERULAR FILTRATION RATE 47.9 (>32); GLUCOSE, FASTING 103 MG/DL (70-100); POTASSIUM SERUM 3.5 MEQ/L (3.5-5.1); SODIUM LEVEL 147 MEQ/L (136-145)
[2018-01-06] MEDS ORDERED: FUROSEMIDE 20 MG TAB PO (09:00)
[2018-01-06] MEDS: SODIUM CHLORIDE NASAL 0.65% SPRAY BTL (OCEAN) (09:09)
[2018-01-06] MEDS: ESCITALOPRAM OXALATE 5MG TABLET (LEXAPRO) PO (09:09)
[2018-01-06] MEDS: PANTOPRAZOLE 40MG INJ (PROTONIX) (C9113) IV ×2 (09:09→22:01)
[2018-01-06] MEDS: GABAPENTIN 100 MG CAP PO ×2 (09:10→22:00)
[2018-01-06] MEDS: FUROSEMIDE 40 MG TAB PO (09:10)
[2018-01-06] MEDS: MECLIZINE 25 MG TABLET PO (09:10)
[2018-01-06] MEDS: MAGNESIUM OXIDE 400 MG TAB (MAG-OX) PO (09:10)
[2018-01-06] MEDS: POTASSIUM CHLORIDE 10 MEQ SR TABLET PO (09:10)
[2018-01-06] MEDS: CARVedilol 3.125 MG TAB PO ×2 (09:16→22:01)
[2018-01-06] MEDS: POLYSPORIN TOPICAL OINTMENT 15GM TOP ×3 (09:17→22:01)
[2018-01-06] MEDS: TOPIRAMATE (TopAMAX) 25 MG TAB PO (22:00)
[2018-01-06] MEDS: ATORVASTATIN 20 MG TAB PO (22:02)
[2018-01-07] MEDS: NAFCILLIN SOD 2 GM in D5W MINI-BAG PLUS 50 ML IV ×6 (00:44→20:25)
[2018-01-07] MEDS: SODIUM CHLORIDE 0.9% INJ 10 ML SYR IV ×4 (02:15→22:09)
[2018-01-07] MEDS: LEVOTHYROXINE 25MCG TABLET (0.025MG) PO (05:27)
[2018-01-07 05:48] LABS: BASO % 0.8 % (0.0-1.0); EOS # 0.2 10^3/uL (0.0-0.50); EOS % 3.1 % (0.0-3.0); IMMATURE GRANULOCYTE % 0.4 % (0-3.0); LYMPH # 0.7 10^3/uL (1.5-4.5); LYMPH % 14.7 % (24.0-44.0); MEAN CORPUSCULAR HEMOGLOBIN 32.5 pg (27.0-33.0); MEAN CORPUSCULAR HGB CONC 33.3 g/dl (32.0-36.5); MEAN CORPUSCULAR VOLUME 97.6 fl (80.0-96.0); MONO # 0.5 10^3/uL (0.0-0.8); MONO % 9.3 % (0.0-5.0); NEUTROPHILS # 3.5 10^3/uL (1.8-7.7); NEUTROPHILS % 71.7 % (36.0-66.0); PLATELET COUNT, AUTOMATED 141 10^3/uL (150-450); RED BLOOD COUNT 3.38 10^6/uL (4.00-5.40); RED CELL DISTRIBUTION WIDTH 16.2 % (11.5-14.5); WHITE BLOOD COUNT 4.8 10^3/uL (4.0-10.0)
[2018-01-07 06:09] LABS: ANION GAP 8 MEQ/L (8-16); BLOOD UREA NITROGEN 12 MG/DL (7-18); CALCIUM LEVEL 7.9 MG/DL (8.8-10.2); CARBON DIOXIDE LEVEL 26 MEQ/L (21-32); CHLORIDE LEVEL 113 MEQ/L (98-107); GLOMERULAR FILTRATION RATE 41.5 (>32); GLUCOSE, FASTING 96 MG/DL (70-100); MAGNESIUM LEVEL 1.6 MG/DL (1.8-2.4); SODIUM LEVEL 147 MEQ/L (136-145)
[2018-01-07] MEDS: PANTOPRAZOLE 40MG INJ (PROTONIX) (C9113) IV ×2 (08:51→20:23)
[2018-01-07] MEDS: GABAPENTIN 100 MG CAP PO ×2 (08:51→20:24)
[2018-01-07] MEDS: ESCITALOPRAM OXALATE 5MG TABLET (LEXAPRO) PO (08:51)
[2018-01-07] MEDS: MECLIZINE 25 MG TABLET PO (08:52)
[2018-01-07] MEDS: CARVedilol 3.125 MG TAB PO ×2 (08:52→20:24)
[2018-01-07] MEDS: MAGNESIUM OXIDE 400 MG TAB (MAG-OX) PO (08:52)
[2018-01-07] MEDS: POTASSIUM CHLORIDE 10 MEQ SR TABLET PO (08:52)
[2018-01-07] MEDS: MAG SULF 1GM/100ML (MAG RUN) 1 GM in APPROPRIATE DILUENT 1 EA IV (08:53)
[2018-01-07] MEDS: POLYSPORIN TOPICAL OINTMENT 15GM TOP ×3 (08:53→20:25)
[2018-01-07] MEDS ORDERED: OXYMETAZOLINE NASAL SPRAY (AFRIN) (09:00)
[2018-01-07] MEDS: TOPIRAMATE (TopAMAX) 25 MG TAB PO (20:24)
[2018-01-07] MEDS: ATORVASTATIN 20 MG TAB PO (20:25)
[2018-01-08] MEDS: NAFCILLIN SOD 2 GM in D5W MINI-BAG PLUS 50 ML IV ×6 (01:08→21:42)
[2018-01-08] MEDS: SODIUM CHLORIDE 0.9% INJ 10 ML SYR IV ×3 (02:13→17:15)
[2018-01-08] MEDS: LEVOTHYROXINE 25MCG TABLET (0.025MG) PO (05:22)
[2018-01-08 05:35] LABS: BASO % 0.8 % (0.0-1.0); EOS # 0.2 10^3/uL (0.0-0.50); EOS % 2.8 % (0.0-3.0); HEMATOCRIT 29.7 % (36.0-47.0); IMMATURE GRANULOCYTE % 0.4 % (0-3.0); LYMPH # 0.9 10^3/uL (1.5-4.5); MEAN CORPUSCULAR HEMOGLOBIN 32.5 pg (27.0-33.0); MEAN CORPUSCULAR HGB CONC 33.7 g/dl (32.0-36.5); MEAN CORPUSCULAR VOLUME 96.4 fl (80.0-96.0); MONO # 0.6 10^3/uL (0.0-0.8); MONO % 11.3 % (0.0-5.0); NEUTROPHILS # 3.7 10^3/uL (1.8-7.7); NEUTROPHILS % 68.7 % (36.0-66.0); PLATELET COUNT, AUTOMATED 153 10^3/uL (150-450); RED BLOOD COUNT 3.08 10^6/uL (4.00-5.40); RED CELL DISTRIBUTION WIDTH 16.2 % (11.5-14.5); WHITE BLOOD COUNT 5.3 10^3/uL (4.0-10.0)
[2018-01-08 05:53] LABS: MAGNESIUM LEVEL 1.9 MG/DL (1.8-2.4)
[2018-01-08 05:57] LABS: ANION GAP 9 MEQ/L (8-16); BLOOD UREA NITROGEN 11 MG/DL (7-18); CALCIUM LEVEL 7.6 MG/DL (8.8-10.2); CARBON DIOXIDE LEVEL 23 MEQ/L (21-32); CHLORIDE LEVEL 116 MEQ/L (98-107); CREATININE FOR GFR 1.26 MG/DL (0.55-1.30); GLOMERULAR FILTRATION RATE 43.1 (>32); GLUCOSE, FASTING 94 MG/DL (70-100); POTASSIUM SERUM 3.4 MEQ/L (3.5-5.1); SODIUM LEVEL 148 MEQ/L (136-145)
[2018-01-08] MEDS ORDERED: FUROSEMIDE 40 MG TAB PO (09:00)
[2018-01-08] MEDS ORDERED: FUROSEMIDE 20 MG TAB PO (09:00)
[2018-01-08] MEDS: POTASSIUM CHLORIDE 10 MEQ SR TABLET PO (09:08)
[2018-01-08] MEDS: MECLIZINE 25 MG TABLET PO (09:09)
[2018-01-08] MEDS: POLYSPORIN TOPICAL OINTMENT 15GM TOP ×3 (09:09→21:43)
[2018-01-08] MEDS: FUROSEMIDE 20 MG TAB PO (09:09)
[2018-01-08] MEDS: GABAPENTIN 100 MG CAP PO ×2 (09:09→21:43)
[2018-01-08] MEDS: CARVedilol 3.125 MG TAB PO ×2 (09:09→21:42)
[2018-01-08] MEDS: MAGNESIUM OXIDE 400 MG TAB (MAG-OX) PO (09:09)
[2018-01-08] MEDS: ESCITALOPRAM OXALATE 5MG TABLET (LEXAPRO) PO (09:12)
[2018-01-08 13:33] LABS: HEPARIN INDUCED PLATELET ABY 0.195 OD (0.000-0.400)
[2018-01-08] MEDS: TOPIRAMATE (TopAMAX) 25 MG TAB PO (21:42)
[2018-01-08] MEDS: ATORVASTATIN 20 MG TAB PO (21:43)
[2018-01-09] MEDS: NAFCILLIN SOD 2 GM in D5W MINI-BAG PLUS 50 ML IV ×4 (01:26→13:00)
[2018-01-09] MEDS: SODIUM CHLORIDE 0.9% INJ 10 ML SYR IV ×2 (03:19→05:36)
[2018-01-09] MEDS: LEVOTHYROXINE 25MCG TABLET (0.025MG) PO (05:35)
[2018-01-09 09:20] LABS: ANION GAP 9 MEQ/L (8-16); BLOOD UREA NITROGEN 12 MG/DL (7-18); CALCIUM LEVEL 7.7 MG/DL (8.8-10.2); CARBON DIOXIDE LEVEL 22 MEQ/L (21-32); CHLORIDE LEVEL 117 MEQ/L (98-107); CREATININE FOR GFR 1.16 MG/DL (0.55-1.30); GLOMERULAR FILTRATION RATE 47.4 (>32); GLUCOSE, FASTING 88 MG/DL (70-100); POTASSIUM SERUM 3.5 MEQ/L (3.5-5.1); SODIUM LEVEL 148 MEQ/L (136-145)
[2018-01-09] MEDS: CARVedilol 3.125 MG TAB PO (09:45)
[2018-01-09] MEDS: GABAPENTIN 100 MG CAP PO (09:45)
[2018-01-09] MEDS: MAGNESIUM OXIDE 400 MG TAB (MAG-OX) PO (09:45)
[2018-01-09] MEDS: MECLIZINE 25 MG TABLET PO (09:45)
[2018-01-09] MEDS: FUROSEMIDE 20 MG TAB PO (09:45)
[2018-01-09] MEDS: POLYSPORIN TOPICAL OINTMENT 15GM TOP (09:46)
[2018-01-09] MEDS: ESCITALOPRAM OXALATE 5MG TABLET (LEXAPRO) PO (09:50)
[2018-01-09] MEDS: POTASSIUM CHLORIDE 10 MEQ SR TABLET PO (11:19)
== END 2018-01-09 15:10 | disposition home health service (06) | DRG 871 ==
LOC: M ED INP 12-29 00:51 → M MSPAV 12-31 15:45 → M ED 15:39 → M MS4PR 12-29 12:16
PROC: B246ZZ4 Ultrasonography of Right and Left Heart, Transesophageal (ICD-10-PCS; principal; 2018-01-02 11:00)
PROC: 2Y41X5Z Packing of Nasal Region using Packing Material (ICD-10-PCS; 2018-01-02 12:47)
PROC: 095KXZZ Destruction of Nasal Mucosa and Soft Tissue, External Approach (ICD-10-PCS; 2018-01-02 12:47)
PROC: 02HV33Z Insertion of Infusion Device into Superior Vena Cava, Percutaneous Approach (ICD-10-PCS; 2018-01-02 12:47)
PROC: 30233N1 Transfusion of Nonautologous Red Blood Cells into Peripheral Vein, Percutaneous Approach (ICD-10-PCS; 2018-01-02 12:47)
DX: A41.01 Sepsis due to Methicillin susceptible Staphylococcus aureus (principal); I33.0 Acute and subacute infective endocarditis; I13.0 Hypertensive heart and chronic kidney disease with heart failure and stage 1 through stage 4 chronic kidney disease, or unspecified chronic kidney disease; D61.818 Other pancytopenia; I50.22 Chronic systolic (congestive) heart failure; Q21.1 Atrial septal defect; D62 Acute posthemorrhagic anemia; K62.5 Hemorrhage of anus and rectum; E87.0 Hyperosmolality and hypernatremia; K52.1 Toxic gastroenteritis and colitis; R50.9 Fever, unspecified; I25.10 Atherosclerotic heart disease of native coronary artery without angina pectoris; I25.2 Old myocardial infarction; I48.0 Paroxysmal atrial fibrillation; E87.6 Hypokalemia; J34.89 Other specified disorders of nose and nasal sinuses; N18.3 Chronic kidney disease, stage 3 (moderate); R04.0 Epistaxis; I78.0 Hereditary hemorrhagic telangiectasia; D63.8 Anemia in other chronic diseases classified elsewhere; Z95.810 Presence of automatic (implantable) cardiac defibrillator; Z79.899 Other long term (current) drug therapy; Z91.040 Latex allergy status; F03.90 Unspecified dementia, unspecified severity, without behavioral disturbance, psychotic disturbance, mood disturbance, and anxiety; T47.1X5A Adverse effect of other antacids and anti-gastric-secretion drugs, initial encounter